=== PATIENT | female | born 2000 | race Caucasian/White ===

== ENCOUNTER 2023-04-18 11:39 | Emergency (ER) | payer OTHER ==
[~2023-04-18] VITALS: Ht 152.4 cm; Wt 58.3 kg
[2023-04-18] MEDS ORDERED: MULTTAB20 PO (11:58)
[2023-04-18 12:27] LABS: BASO % 0.5 % (0.0-1.0); EOS # 0.1 10^3/uL (0.0-0.5); EOS % 0.8 % (0.0-3.0); HEMATOCRIT 41.9 % (36.0-47.0); HEMOGLOBIN 13.8 g/dl (12.0-15.5); LYMPH # 2.2 10^3/uL (1.5-5.0); LYMPH % 25.6 % (24.0-44.0); MEAN CORPUSCULAR HEMOGLOBIN 29.1 pg (27.0-33.0); MEAN CORPUSCULAR HGB CONC 32.9 g/dl (32.0-36.5); MEAN CORPUSCULAR VOLUME 88.2 fl (80.0-96.0); MONO # 0.3 10^3/uL (0.0-0.8); MONO % 3.9 % (2.0-8.0); NEUTROPHILS # 5.8 10^3/uL (1.5-8.5); NEUTROPHILS % 68.7 % (36.0-66.0); PLATELET COUNT, AUTOMATED 276 10^3/uL (150-450); RED BLOOD COUNT 4.75 10^6/uL (4.00-5.40); WHITE BLOOD COUNT 8.4 10^3/uL (4.0-10.0)
[2023-04-18 12:50] LABS: BLOOD UREA NITROGEN 13 MG/DL (9-23); CALCIUM LEVEL 9.2 MG/DL (8.5-10.1); CARBON DIOXIDE LEVEL 26 MMOL/L (20-31); CHLORIDE LEVEL 105 MMOL/L (98-107); CREATININE FOR GFR 0.82 MG/DL (0.55-1.30); GLOMERULAR FILTRATION RATE > 60.0 (>60); GLUCOSE, FASTING 90 MG/DL (60-100); POTASSIUM SERUM 4.5 MMOL/L (3.5-5.1); SODIUM LEVEL 136 MMOL/L (136-145)
[2023-04-18 13:04] LABS: HCG, SERUM QUANTITATIVE 1385.6 MIU/ML (<4.2)
[2023-04-18 13:30] VITALS: BP 116/71; TEMP 96.7; O2SAT 99
== END 2023-04-18 13:35 | disposition home or self-care (01) ==
LOC: M ED 11:39
DX: O20.0 Threatened abortion (principal); Z3A.01 Less than 8 weeks gestation of pregnancy; Z79.810 Long term (current) use of selective estrogen receptor modulators (SERMs)

== ENCOUNTER → 2023-04-21 | Outpatient (CLI) | payer OTHER ==
[~2023-04-21] MED LIST: MULTTAB20 PO
== END ==
LOC: M LAB 10:48
PROVIDERS: ATTEND Physician Assistant
DX: O20.0 Threatened abortion (principal); Z3A.00 Weeks of gestation of pregnancy not specified

== ENCOUNTER → 2023-08-22 | Outpatient (CLI) | payer OTHER ==
[2023-08-22 13:23] LABS: HEMATOCRIT 43.1 % (36.0-47.0); HEMOGLOBIN 14.2 g/dl (12.0-15.5); MEAN CORPUSCULAR HEMOGLOBIN 29.7 pg (27.0-33.0); MEAN CORPUSCULAR HGB CONC 32.9 g/dl (32.0-36.5); MEAN CORPUSCULAR VOLUME 90.2 fl (80.0-96.0); PLATELET COUNT, AUTOMATED 259 10^3/uL (150-450); RED BLOOD COUNT 4.78 10^6/uL (4.00-5.40); WHITE BLOOD COUNT 10.7 10^3/uL (4.0-10.0)
[2023-08-22 14:25] LABS: HIV 1&2 SCREEN NEGATIVE (NEGATIVE)
[2023-08-22 14:34] LABS: HEPATITIS C VIRUS ABY INDEX < 0.02 INDEX (<0.8)
[2023-08-22 14:50] LABS: GC DNA AMPLIFICATION NEGATIVE (NEGATIVE)
== END ==
LOC: M PLALAB 10:41
PROVIDERS: ATTEND Advanced Practice Midwife
DX: Z34.81 Encounter for supervision of other normal pregnancy, first trimester (principal)

== ENCOUNTER → 2023-10-23 | Outpatient (CLI) | payer OTHER ==
[~2023-10-23] MED LIST changes: +AMOX875T2 PO; +FAMO1TAB11; +ONDA-282 PO
== END ==
LOC: M WHC 09:38
PROVIDERS: ATTEND Obstetrics & Gynecology
DX: Z34.81 Encounter for supervision of other normal pregnancy, first trimester (principal)

== ENCOUNTER 2023-10-24 13:57 | Emergency (ER) | payer OTHER ==
[~2023-10-24] VITALS: Ht 154.9 cm; Wt 59.1 kg
[~2023-10-24 13:57] MED LIST changes: -AMOX875T2 PO; -FAMO1TAB11; -ONDA-282 PO
[2023-10-24] MEDS ORDERED: FAMO1TAB11 (14:11)
[2023-10-24] MEDS ORDERED: ONDA-282 PO (14:11)
[2023-10-24 15:00] LABS: BASO % 0.3 % (0.0-1.0); EOS % 0.3 % (0.0-3.0); HEMATOCRIT 33.5 % (36.0-47.0); HEMOGLOBIN 11.3 g/dl (12.0-15.5); LYMPH # 1.5 10^3/uL (1.5-5.0); LYMPH % 12.5 % (24.0-44.0); MEAN CORPUSCULAR HEMOGLOBIN 30.5 pg (27.0-33.0); MEAN CORPUSCULAR HGB CONC 33.7 g/dl (32.0-36.5); MEAN CORPUSCULAR VOLUME 90.5 fl (80.0-96.0); MONO # 0.4 10^3/uL (0.0-0.8); MONO % 3.4 % (2.0-8.0); NEUTROPHILS # 9.7 10^3/uL (1.5-8.5); NEUTROPHILS % 83.1 % (36.0-66.0); PLATELET COUNT, AUTOMATED 168 10^3/uL (150-450); WHITE BLOOD COUNT 11.7 10^3/uL (4.0-10.0)
[2023-10-24] MEDS: NS 1,000 ML IV ONE (15:08)
[2023-10-24] MEDS: ACETAMINOPHEN *IV* 1,000 MG in IV 1 EA IV ONE (15:09)
[2023-10-24 15:25] LABS: ALBUMIN 2.9 G/DL (3.2-5.2); BILIRUBIN,DIRECT 0.2 MG/DL (<0.4); BILIRUBIN,TOTAL 0.4 MG/DL (0.3-1.2); TOTAL PROTEIN 6.3 G/DL (5.7-8.2)
[2023-10-24] MEDS ORDERED: cefTRIAXone SOD 1 GM in D5W MINI-BAG PLUS 50 ML IV ONE (15:55)
[2023-10-24] MEDS: cefTRIAXone SOD 1 GM in D5W MINI-BAG PLUS 50 ML IV ONE (16:22)
[2023-10-24] MEDS ORDERED: AMOX875T2 PO (16:48)
[2023-10-24 17:29] VITALS: BP 105/59; TEMP 97.5; O2SAT 100
== END 2023-10-24 17:35 | disposition home or self-care (01) ==
LOC: EDBD 13:57 → M ED 13:57
DX: O26.612 Liver and biliary tract disorders in pregnancy, second trimester (principal); Z3A.19 19 weeks gestation of pregnancy; Z79.2 Long term (current) use of antibiotics; Z79.810 Long term (current) use of selective estrogen receptor modulators (SERMs)
CPT/HCPCS: 76705; 80047; 80076; 83690; 85025; 96365; 96366; 99284; J0131; J0696

== ENCOUNTER → 2023-12-24 | Outpatient (CLI) | payer OTHER ==
[~2023-12-24] MED LIST changes: +AMOX875T2 PO; +FAMO1TAB11; +ONDA-282 PO
[2023-12-24 13:41] LABS: GLUCOSE CHALLENGE TEST 1 HOUR 146 MG/DL (LESS THAN 140)
[2023-12-24 13:44] LABS: HEMATOCRIT 34.1 % (36.0-47.0); HEMOGLOBIN 10.9 g/dl (12.0-15.5); MEAN CORPUSCULAR HEMOGLOBIN 30.3 pg (27.0-33.0); MEAN CORPUSCULAR VOLUME 94.7 fl (80.0-96.0); PLATELET COUNT, AUTOMATED 170 10^3/uL (150-450); WHITE BLOOD COUNT 6.9 10^3/uL (4.0-10.0)
[2023-12-24 14:49] LABS: HIV 1&2 SCREEN NEGATIVE (NEGATIVE)
[2023-12-24 14:56] LABS: HEPATITIS C VIRUS ABY INDEX < 0.02 INDEX (<0.8)
[2023-12-24 15:27] LABS: GC DNA AMPLIFICATION NEGATIVE (NEGATIVE)
== END ==
LOC: M PLALAB 08:19
PROVIDERS: ATTEND Obstetrics & Gynecology
DX: Z34.92 Encounter for supervision of normal pregnancy, unspecified, second trimester (principal)

== ENCOUNTER → 2024-01-05 | Outpatient (CLI) | payer OTHER | LOC: M LAB 07:11 | PROVIDERS: ATTEND Obstetrics & Gynecology | DX: R73.09 Other abnormal glucose (principal) ==

== ENCOUNTER 2024-02-04 02:09 | Outpatient (CLI) | payer OTHER ==
[~2024-02-04] VITALS: Ht 154.9 cm; Wt 59.1 kg
[2024-02-04 02:23] VITALS: BP 113/61
[2024-02-04] MEDS ORDERED: ACET-907 PO (02:26)
[2024-02-04] MEDS ORDERED: HOME MED LIST COMPLETE! XX SCH (02:45)
== END 2024-02-04 04:11 | disposition home or self-care (01) ==
LOC: M LDO 02:09
PROVIDERS: ATTEND Obstetrics & Gynecology
DX: O26.893 Other specified pregnancy related conditions, third trimester (principal); R10.84 Generalized abdominal pain; Z3A.33 33 weeks gestation of pregnancy
CPT/HCPCS: 59025; 81001; G0463

== ENCOUNTER → 2024-02-11 | Outpatient (REF) | payer OTHER ==
[~2024-02-11] MED LIST changes: +ACET-907 PO
== END ==
LOC: M SFHCWAGY 16:59
PROVIDERS: ATTEND Nurse Practitioner Family
DX: N89.8 Other specified noninflammatory disorders of vagina (principal); Z3A.34 34 weeks gestation of pregnancy

== ENCOUNTER 2024-02-21 12:35 | Outpatient (CLI) | payer OTHER ==
[~2024-02-21] VITALS: Ht 154.9 cm; Wt 59.8 kg
[2024-02-21 12:55] VITALS: BP 115/69
[2024-02-21 14:25] VITALS: BP 105/59
== END 2024-02-21 14:44 | disposition home or self-care (01) ==
LOC: M LDO 12:35
PROVIDERS: ATTEND Obstetrics & Gynecology
DX: O47.03 False labor before 37 completed weeks of gestation, third trimester (principal); O99.613 Diseases of the digestive system complicating pregnancy, third trimester; K80.20 Calculus of gallbladder without cholecystitis without obstruction; Z3A.36 36 weeks gestation of pregnancy
CPT/HCPCS: 59025; G0463

== ENCOUNTER 2024-02-27 01:01 | Inpatient (IN) | payer OTHER ==
[2024-02-27] VITALS (23 sets, daily range): BP systolic 101–124; BP diastolic 56–77; O2SAT 99–100
[~2024-02-27] VITALS: Ht 154.9 cm; Wt 59.7 kg
[2024-02-27] MEDS ORDERED: CARBOPROST TROMETHAMINE 250 MCG/ML AMP IM PRN (03:15)
[2024-02-27] MEDS ORDERED: LIDOCAINE 1% MDV 20ML VIAL INFIL PRN (03:15)
[2024-02-27] MEDS ORDERED: METHYLERGONOVINE MALEATE 0.2MG/ML 1ML VIAL IM PRN (03:15)
[2024-02-27] MEDS ORDERED: TRANEXAMIC ACID INJection 1,000 MG in NS 100 ML IV PRN (03:15)
[2024-02-27 03:56] LABS: HEMATOCRIT 33.7 % (36.0-47.0); MEAN CORPUSCULAR HEMOGLOBIN 29.3 pg (27.0-33.0); MEAN CORPUSCULAR HGB CONC 32.6 g/dl (32.0-36.5); MEAN CORPUSCULAR VOLUME 89.6 fl (80.0-96.0); PLATELET COUNT, AUTOMATED 188 10^3/uL (150-450); RED BLOOD COUNT 3.76 10^6/uL (4.00-5.40); WHITE BLOOD COUNT 10.3 10^3/uL (4.0-10.0)
[2024-02-27 04:59] LABS: HEPATITIS C VIRUS ABY INDEX < 0.02 INDEX (<0.8)
[2024-02-27] MEDS ORDERED: diphenhydrAMINE 50MG/ML VIAL IV PRN (05:25)
[2024-02-27] MEDS ORDERED: LR 500 ML IV PRN (05:25)
[2024-02-27] MEDS ORDERED: ePHEDrine SULFATE 25 MG/5 ML(5MG/ML) SYRINGE IVP PRN (05:25)
[2024-02-27] MEDS ORDERED: EPIDURAL/PCA KEYS XX PRN (05:25)
[2024-02-27] MEDS ORDERED: NALOXONE INJ 0.4MG/1ML VIAL IV PRN (05:25)
[2024-02-27] MEDS: FENTANYL/ROPIVACAINE/NACL BAG 100 ML EPIDURAL SCH (05:38)
[2024-02-27] MEDS: ONDANSETRON 4MG 2ML VIAL IV PRN (07:34)
[2024-02-27] MEDS: LR 1,000 ML IV SCH (08:37)
[2024-02-27] MEDS: LACTATED RINGER'S 1000 ML IV STA (08:37)
[2024-02-27] MEDS: OXYTOCIN DRIP 30 UNITS in IV 1 EA IV SCH (08:42)
[2024-02-27] MEDS: OXYTOCIN DRIP 30 UNITS in IV 1 EA IV PRN (09:38)
[2024-02-27] MEDS ORDERED: RHOGAM 300MCG (1500IU) INJ IM SCH (10:05)
[2024-02-27] MEDS ORDERED: ACETAMINOPHEN 325 MG TAB PO PRN (10:05)
[2024-02-27] MEDS ORDERED: DIBUCAINE 1% OINTMENT 30GM TOP PRN (10:05)
[2024-02-27] MEDS ORDERED: METHYLERGONOVINE MALEATE 0.2 MG TAB PO PRN (10:05)
[2024-02-27] MEDS: ACETAMINOPHEN 500 MG TAB PO PRN (13:51)
[2024-02-28 06:00] VITALS: BP 116/58; O2SAT 99
[2024-02-28] MEDS: IBUPROFEN 600MG TAB PO PRN (06:01)
[2024-02-28] MEDS: PRENATAL VITAMINS CHEWABLE TABLET PO SCH (10:10)
[2024-02-28] MEDS: DOCUSATE SODIUM 100MG CAPSULE PO PRN (10:10)
[2024-02-28 18:00] VITALS: BP 100/59; O2SAT 98
[2024-02-28] MEDS: IBUPROFEN 800 MG TAB PO PRN (22:17)
[2024-02-29 05:45] VITALS: BP 109/63; O2SAT 97
[2024-02-29] MEDS ORDERED: MEASLES,MUMPS,RUBELLA VACCINE INJ (MMR-II) SC.IMMUN ONE (09:00)
== END 2024-02-29 14:30 | disposition home or self-care (01) | DRG 807 ==
LOC: M LDO 01:01 → M LDI 03:09 → M OBS 14:30
PROVIDERS: ADMIT Obstetrics & Gynecology; ATTEND Advanced Practice Midwife
PROC: 10E0XZZ Delivery of Products of Conception, External Approach (ICD-10-PCS; principal; 2024-02-27)
PROC: 0HQ9XZZ Repair Perineum Skin, External Approach (ICD-10-PCS; 2024-02-27)
DX: O69.81X0 Labor and delivery complicated by cord around neck, without compression, not applicable or unspecified (principal); Z37.0 Single live birth; Z3A.37 37 weeks gestation of pregnancy; O70.0 First degree perineal laceration during delivery

== ENCOUNTER 2024-03-13 02:24 | Emergency (ER) | payer OTHER ==
[~2024-03-13] VITALS: Ht 154.9 cm; Wt 52.9 kg
[2024-03-13 02:28] VITALS: BP 130/74; TEMP 96.4; O2SAT 99
== END 2024-03-13 04:37 | disposition left against medical advice (07) ==
LOC: M ED 02:24
DX: Z53.21 Procedure and treatment not carried out due to patient leaving prior to being seen by health care provider (principal)

== ENCOUNTER 2024-04-30 14:53 | Day surgery (SDC) | payer OTHER ==
[~2024-04-30] VITALS: Ht 154.9 cm; Wt 51.3 kg
[~2024-04-30 14:53] MED LIST changes: +propofoL 200 MG/20 ML VIAL As Ordered ONE
[2024-04-30] MEDS ORDERED: LR 1,000 ML IV SCH ×2 (15:25→18:20)
[2024-04-30] MEDS ORDERED: MIDAZOLAM INJ 2MG/2ML VIAL As Ordered ONE (16:26)
[2024-04-30] MEDS ORDERED: LIDOCAINE 2% 100MG/5ML SDV (FOR ANES.) As Ordered ONE (16:26)
[2024-04-30] MEDS ORDERED: ONDANSETRON 4MG 2ML VIAL As Ordered ONE (16:26)
[2024-04-30] MEDS ORDERED: fentaNYL 100 MCG/2 ML INJECTION As Ordered ONE (16:26)
[2024-04-30] MEDS ORDERED: ROCURONIUM BROMIDE 50MG/5ML VIAL As Ordered ONE (16:26)
[2024-04-30] MEDS: INDOCYANINE GREEN 25MG VIAL (IC-GREEN) IV ONE (17:10)
[2024-04-30] MEDS: ceFAZolin SOD 2 GM in IV 1 EA IV ONE (17:20)
[2024-04-30] MEDS: HEPARIN SOD (PORCINE) 5000UNITS/ML 1ML VIAL/SYRINGE SQ ONE (17:22)
[2024-04-30] MEDS ORDERED: dexmedeTOMIDine (4MCG/ML)200MCG/50ML BTL (PRECEDEX) As Ordered ONE (17:24)
[2024-04-30] MEDS ORDERED: ACETAMINOPHEN 1000MG/100ML IV BAG As Ordered ONE (17:25)
[2024-04-30] MEDS ORDERED: PHENYLephrine 500MCG 5ML (100MCG/ML) SYRINGE As Ordered ONE (17:34)
[2024-04-30] MEDS ORDERED: ePHEDrine SULFATE 25 MG/5 ML(5MG/ML) SYRINGE As Ordered ONE (17:37)
[2024-04-30] MEDS ORDERED: HYDROmorphone HCL 2MG/ML 1ML VIAL As Ordered ONE (17:50)
[2024-04-30] MEDS ORDERED: KETOROLAC 60MG 2ML VIAL As Ordered ONE (17:51)
[2024-04-30] MEDS ORDERED: SUGAMMADEX SODIUM 500 MG/5 ML VIAL (BRIDION) As Ordered ONE (17:51)
[2024-04-30] MEDS ORDERED: fentaNYL 100 MCG/2 ML INJECTION IV PRN (18:20)
[2024-04-30] MEDS ORDERED: HYDROMORPHONE HCL 0.5 MG/ 0.5 ML SYRINGE IV PRN (18:20)
[2024-04-30] MEDS: oxyCODONE 5MG TAB PO PRN (19:00)
[2024-04-30] MEDS: ONDANSETRON 4MG 2ML VIAL IV PRN (19:06)
[2024-04-30 19:15] VITALS: BP 124/72; TEMP 97.4; O2SAT 100
== END 2024-04-30 20:30 | disposition home or self-care (01) ==
LOC: M SDC 14:53
PROVIDERS: ATTEND Surgery
DX: K80.20 Calculus of gallbladder without cholecystitis without obstruction (principal)
CPT/HCPCS: 47562; 88304; J0131; J0665; J0690; J1100; J1171; J1885; J2250; J2371; J2405; J3010; Q9968; S2900